=== PATIENT | male | born 1935 | race Caucasian/White ===

== ENCOUNTER 2023-03-15 16:06 | Emergency (ER) | payer MEDICARE, OTHER, SELFPAY ==
--- NOTE | ~2023-03-15 | XR_ITS ---
EXAMINATION: [id number] DATE: 03/15/2023 16:49 INDICATION: Right anterior rib pain post fall TECHNIQUE: A frontal inspiratory view of the chest and 5 views of the right ribs were obtained. COMPARISON: Chest radiograph dated 02/11/2017 FINDINGS: Unchanged old fracture anterior right fifth rib. No acute rib fractures identified. Again seen are no dular opacities projecting over both lungs which appear relatively dense and peripheral most consiste nt with calcified pleural plaques. Opacities at the bilateral lung bases. No pleural effusion or pneu mothorax. Cardiomegaly. Median sternotomy wires and mediastinal surgical clips are seen, likely from prior coronary artery bypass grafting. 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 L1-L3 posterior spin al fusion with bilateral vertical raisa and pedicle screw fixation. There is L1-L2 anterior spinal fusi on with interbody bone graft cage. Right rotator cuff arthropathy. Partially visualized screw at the right acetabulum suggesting a nonvisualized right total hip arthroplasty. IMPRESSION: 1. Chronic anterior right fifth rib fracture. No acute rib fractures identified. 2. Persistent dense and peripheral appearing nodular opacities in both lungs which given appearance e chogenicity most likely represent calcified pleural plaques and would correlate for prior stenosis ex posure. 2. Bibasilar opacities which could represent atelectasis or pneumonia in the appropriate clinical set ting. 3. Cardiomegaly. Reviewed, dictated and finalized at location A. DEVELOPER IMPRESSION: 1. Chronic anterior right fifth rib fracture. No acute rib fractures identified . 2. Persistent dense and peripheral appearing nodular opacities in both lungs wh ich given appearance echogenicity most likely represent calcified pleural plaqu es and would correlate for prior stenosis exposure. 2. Bibasilar opacities which could represent atelectasis or pneumonia in the ap propriate clinical setting. 3. Cardiomegaly.
[2023-03-15 16:24] VITALS: PULSE 59; RESP 18; TEMP 36.8; O2SAT 100
[2023-03-15 16:34] VITALS: PULSE 59; RESP 18; TEMP 36.8; O2SAT 100
--- NOTE | 2023-03-15 17:08 | ED.FALL ---
HPI - Fall General Chief Complaint: Fall Stated Complaint: Fall Injury/Chest Pain/Shortness of Breath Source: patient Mode of arrival: ambulatory Limitations: no limitations History of Present Illness HPI Narrative: 87 y/o male presented for complaint of right anterior chest pain after a fall today around noon. States he tripped and fell landing on the right chest. States pain is worse when taking a deep breath and feels that his breath is restricted due to the pain. He endorses abrasion to the right elbow and admits to striking his face on the floor. Denies headache or neck pain. Taking hydrocodone and Flexeril for arm pain. Denies palpitations, nausea, vomiting, fever or fatigue. Related Data Home Medications Medication Instructions Recorded Confirmed amlodipine 2.5 mg tablet 2.5 mg PO DAILY 03/15/23 03/15/23 apixaban 5 mg tablet (Eliquis) 5 mg PO BID 03/15/23 03/15/23 atorvastatin 80 mg tablet 80 mg PO DAILY 03/15/23 03/15/23 brinzolamide 1 %-brimonidine 0.2 % 1 drp EACH EYE BID 03/15/23 03/15/23 eye drops,suspension (Simbrinza) bromocriptine 5 mg capsule 5 mg PO DAILY 03/15/23 03/15/23 cyclobenzaprine 10 mg tablet 10 mg PO TID PRN Muscle Pain 03/15/23 03/15/23 dapagliflozin propanediol 10 mg 10 mg PO DAILY 03/15/23 03/15/23 tablet (Farxiga) dronedarone 400 mg tablet (Multaq) 400 mg PO DAILY 03/15/23 03/15/23 ezetimibe 10 mg tablet 10 mg PO DAILY 03/15/23 03/15/23 ferrous sulfate 325 mg (65 mg 325 mg PO DAILY 03/15/23 03/15/23 iron) tablet (Iron (ferrous sulfate)) hydrocodone 10 mg-acetaminophen 1 tablet PO Q6-8H PRN Pain 03/15/23 03/15/23 325 mg tablet metoprolol tartrate 25 mg tablet 25 mg PO BID 03/15/23 03/15/23 tamsulosin 0.4 mg capsule 0.8 mg PO HS 03/15/23 03/15/23 valsartan 80 mg tablet 80 mg PO DAILY 03/15/23 03/15/23 Allergies Allergy/AdvReac Type Severity Reaction Status Date / Time shellfish derived Allergy Severe Wheezing Verified 08/17/18 17:29 codeine Allergy Unknown Unknown Verified 02/11/17 14:23 lidocaine [From Xylocaine] Allergy Unknown Verified 03/15/23 16:46 Review of Systems Review of Systems: CONSTITUTIONAL: Denies body aches, fever, chills, or sweats. EYES: Denies visual changes, redness, or discharge. ENT: Denies rhinorrhea, congestion, sore throat, or otalgia. CARDIOVASCULAR: Denies chest pain, palpitations, or edema. RESPIRATORY: Denies cough or dyspnea. SKIN: Denies rash, itching, or wounds. MUSCULOSKELETAL: reports rib pain Denies back pain, joint pain, or myalgia. NEUROLOGIC: Denies headache, numbness, tingling, or weakness. All systems reviewed & are unremarkable except as noted in HPI and below PMFSH Past Medical History Medical History (Updated 03/15/23 @ 17:50 by Heike Ojeda APRN) H/O asbestos exposure HTN (hypertension) Surgical History Surgical History (Updated 03/15/23 @ 17:50 by Heike Ojeda APRN) Heart valve replaced History of lumbar fusion Comments At time of signature, I have reviewed and agree with nursing past medical, surgical, social and family history unless otherwise noted. Please see nursing chart for further information. There is no relevant family history pertinent to the presenting complaint Exam Narrative: GENERAL: Well-appearing, well-nourished, and in no acute distress. EYES: EOMI. No redness or drainage. Conjunctivae normal. ENT: Mucous membranes pink and moist. Abrasion to upper lip NECK: Normal AROM. Supple. No lymphadenopathy. CHEST: No respiratory distress. Clear to auscultation. Right anterior chest tenderness with palpation over ribs 3-4 area. No bruising or apparent deformity. HEART: Regular rate and rhythm.Murmur is appreciated. Normal peripheral pulses. EXTREMITIES: Normal range of motion to RUE, no elbow swelling or deformity. SKIN: right elbow abrasion approximately 1 cm diameter, no active drainage, Warm, dry, Capillary refill normal. Normal skin turgor. NEURO: No focal deficits. Alert and oriente
== END 2023-03-15 17:52 | disposition home or self-care (01) ==
PROVIDERS: Emergency Provider Nurse Practitioner Family
DX: R07.81 Pleurodynia (principal); I10 Essential (primary) hypertension; Z77.090 Contact with and (suspected) exposure to asbestos; Z95.2 Presence of prosthetic heart valve
CPT/HCPCS: 71101; 99213; G0463